=== PATIENT | female | born 1950 | race Caucasian/White ===

== ENCOUNTER 2021-09-07 17:53 | Inpatient (IN) ==
[2021-09-09] MEDS ORDERED: Fluticasone Propionate Nasal 50 MCG/SPRAY BOTTLE NS PRN (08:45)
[2021-09-09] MEDS ORDERED: Magnesium Oxide 400 MG TABLET PO PRN (08:45)
[2021-09-09] MEDS ORDERED: Nystatin POWDER 30 GM BOTTLE TP PRN (08:45)
[2021-09-09] MEDS ORDERED: Nystatin SUSP 5 ML UD.LIQ PO SCH (09:00)
[2021-09-09 16:28] LABS: Basophils % 0.1 %; Eosinophils % 0.3 %; Hematocrit 32.9 % (35.3-44.9); Hemoglobin 9.9 g/dL (11.5-15.4); Immature Granulocytes % 0.7 % (0-4); Lymphocytes # 0.6 K/mcL (0.6-4.6); Lymphocytes % 4.4 %; Mean Corpuscular HGB Conc 30.1 g/dL (31.6-35.5); Mean Corpuscular Hemoglobin 27.7 pg (28.0-33.3); Mean Corpuscular Volume 92.2 fL (83.0-100.0); Mean Platelet Volume 9.9 fL (9.4-12.4); Monocytes # 0.4 K/mcL (0.0-1.3); Monocytes % 2.7 %; Platelet Count 316 K/mcL (140-400); Red Blood Count 3.57 M/mcL (3.82-4.97); Red Cell Distribution Width 14.5 % (11.5-14.5); Segmented Neutrophils % 91.8 %; White Blood Count 14.2 K/mcL (4.3-11.1)
[2021-09-09 16:49] LABS: BUN/Creatinine Ratio 25 (6-26); Blood Urea Nitrogen 24 mg/dL (8-23); Calcium 8.3 mg/dL (8.6-10.3); Chloride 83 mEq/L (98-107); Glucose 238 mg/dL (70-105); Osmolality,Calculated 292 (280-300); Potassium 3.4 mEq/L (3.5-5.1); Sodium 135 mEq/L (136-145); eGFR For African Americans > 60 (> 60); eGFR For Non-African Americans 58 (> 60)
[2021-09-09 17:05] LABS: Carbon Dioxide > 45 mEq/L (23-29)
[2021-09-09] MEDS: *HR* Rivaroxaban 10 MG TABLET PO SCH (17:26)
[2021-09-09] MEDS: Torsemide 20 MG TABLET PO SCH (17:26)
[2021-09-09] MEDS: Albuterol 2.5 MG/3 ML NEBULIZER IH SCH (21:29)
[2021-09-09] MEDS: Budesonide Neb 0.5 MG/2 ML IH SCH (21:29)
[2021-09-09] MEDS: Sucralfate 1 GM TABLET PO SCH (22:33)
[2021-09-10] MEDS: Sucralfate 1 GM TABLET PO SCH ×2 (08:16→21:27)
[2021-09-10] MEDS: predniSONE 20 MG TABLET PO SCH (08:16)
[2021-09-10] MEDS: Torsemide 20 MG TABLET PO SCH ×2 (08:17→16:58)
[2021-09-10] MEDS: Budesonide Neb 0.5 MG/2 ML IH SCH ×2 (11:08→21:37)
[2021-09-10] MEDS: Albuterol 2.5 MG/3 ML NEBULIZER IH SCH ×2 (11:08→21:37)
[2021-09-10] MEDS: (Revefenacin [Yupelri] 175 MCG/3 ML Vial.Neb) AER SCH (11:27)
[2021-09-10] MEDS: Acetaminophen 325 MG TABLET PO PRN (14:44)
[2021-09-10] MEDS: *HR* Rivaroxaban 10 MG TABLET PO SCH (16:58)
[2021-09-11 08:13] LABS: Basophils % 0.1 %; Eosinophils # 0.2 K/mcL (0.0-0.6); Eosinophils % 1.4 %; Hematocrit 33.2 % (35.3-44.9); Immature Granulocytes % 0.8 % (0-4); Lymphocytes % 29.9 %; Mean Corpuscular HGB Conc 30.1 g/dL (31.6-35.5); Mean Corpuscular Hemoglobin 27.5 pg (28.0-33.3); Mean Corpuscular Volume 91.2 fL (83.0-100.0); Mean Platelet Volume 10.1 fL (9.4-12.4); Monocytes # 0.8 K/mcL (0.0-1.3); Monocytes % 6.7 %; Platelet Count 319 K/mcL (140-400); Red Blood Count 3.64 M/mcL (3.82-4.97); Red Cell Distribution Width 14.6 % (11.5-14.5); Segmented Neutrophils % 61.1 %; White Blood Count 11.5 K/mcL (4.3-11.1)
[2021-09-11 08:14] LABS: Lymphocytes # 3.4 K/mcL (0.6-4.6)
[2021-09-11 09:08] LABS: BUN/Creatinine Ratio 26 (6-26); Blood Urea Nitrogen 23 mg/dL (8-23); Carbon Dioxide > 45 mEq/L (23-29); Chloride 86 mEq/L (98-107); Glucose 89 mg/dL (70-105); Osmolality,Calculated 291 (280-300); Potassium 2.8 mEq/L (3.5-5.1); Sodium 139 mEq/L (136-145); eGFR For African Americans > 60 (> 60); eGFR For Non-African Americans > 60 (> 60)
[2021-09-11] MEDS: Torsemide 20 MG TABLET PO SCH ×2 (09:30→17:12)
[2021-09-11] MEDS: predniSONE 20 MG TABLET PO SCH (09:30)
[2021-09-11] MEDS ORDERED: Potassium Chloride Elixir 20 MEQ/15 ML UDC PO ONE ×3 (09:30→17:00)
[2021-09-11] MEDS: Sucralfate 1 GM TABLET PO SCH ×2 (09:30→21:10)
[2021-09-11] MEDS: Nicotine 21 MG PATCH.TD24 TD SCH (09:31)
[2021-09-11] MEDS: Budesonide Neb 0.5 MG/2 ML IH SCH ×2 (11:12→21:45)
[2021-09-11] MEDS: Albuterol 2.5 MG/3 ML NEBULIZER IH SCH ×2 (11:12→21:41)
[2021-09-11] MEDS: (Revefenacin [Yupelri] 175 MCG/3 ML Vial.Neb) AER SCH (11:53)
[2021-09-11] MEDS: *HR* Rivaroxaban 10 MG TABLET PO SCH (17:12)
[2021-09-11 18:15] LABS: Calcium 8.6 mg/dL (8.6-10.3)
[2021-09-11] MEDS: Acetaminophen 325 MG TABLET PO PRN (21:10)
[2021-09-12] MEDS: ALPRAZolam 0.5 MG TABLET PO PRN (00:17)
[2021-09-12] MEDS: predniSONE 20 MG TABLET PO SCH (08:07)
[2021-09-12] MEDS: Nicotine 21 MG PATCH.TD24 TD SCH (08:07)
[2021-09-12] MEDS: Torsemide 20 MG TABLET PO SCH ×2 (08:07→16:14)
[2021-09-12] MEDS: Sucralfate 1 GM TABLET PO SCH ×2 (08:07→19:58)
[2021-09-12 08:24] LABS: BUN/Creatinine Ratio 25 (6-26); Blood Urea Nitrogen 25 mg/dL (8-23); Calcium 8.3 mg/dL (8.6-10.3); Carbon Dioxide 44 mEq/L (23-29); Chloride 88 mEq/L (98-107); Glucose 90 mg/dL (70-105); Osmolality,Calculated 288 (280-300); Potassium 3.6 mEq/L (3.5-5.1); Sodium 137 mEq/L (136-145); eGFR For African Americans > 60 (> 60); eGFR For Non-African Americans 55 (> 60)
[2021-09-12] MEDS: Azithromycin 250 MG TABLET PO SCH (09:20)
[2021-09-12] MEDS: Budesonide Neb 0.5 MG/2 ML IH SCH ×2 (10:42→22:45)
[2021-09-12] MEDS: Albuterol 2.5 MG/3 ML NEBULIZER IH SCH ×2 (10:42→22:45)
[2021-09-12] MEDS: (Revefenacin [Yupelri] 175 MCG/3 ML Vial.Neb) AER SCH (10:53)
[2021-09-12] MEDS: *HR* Rivaroxaban 10 MG TABLET PO SCH (16:15)
[2021-09-13] MEDS: Torsemide 20 MG TABLET PO SCH ×2 (10:01→16:12)
[2021-09-13] MEDS: Sucralfate 1 GM TABLET PO SCH ×2 (10:01→22:13)
[2021-09-13] MEDS: ALPRAZolam 0.5 MG TABLET PO PRN ×2 (10:01→22:13)
[2021-09-13] MEDS: Magnesium Oxide 400 MG TABLET PO SCH (10:02)
[2021-09-13] MEDS: Nicotine 21 MG PATCH.TD24 TD SCH (10:02)
[2021-09-13] MEDS: Albuterol 2.5 MG/3 ML NEBULIZER IH SCH ×2 (11:12→21:56)
[2021-09-13] MEDS: Budesonide Neb 0.5 MG/2 ML IH SCH ×2 (11:12→21:56)
[2021-09-13] MEDS: (Revefenacin [Yupelri] 175 MCG/3 ML Vial.Neb) AER SCH (12:48)
[2021-09-13] MEDS: *HR* Rivaroxaban 10 MG TABLET PO SCH (16:12)
[2021-09-14] MEDS: Sucralfate 1 GM TABLET PO SCH ×2 (07:45→19:45)
[2021-09-14] MEDS: Nicotine 21 MG PATCH.TD24 TD SCH (07:45)
[2021-09-14] MEDS: Magnesium Oxide 400 MG TABLET PO SCH (07:45)
[2021-09-14] MEDS: Torsemide 20 MG TABLET PO SCH ×2 (07:52→17:59)
[2021-09-14] MEDS: Azithromycin 250 MG TABLET PO SCH (07:57)
[2021-09-14] MEDS: (Revefenacin [Yupelri] 175 MCG/3 ML Vial.Neb) AER SCH (11:02)
[2021-09-14] MEDS: Acetaminophen 325 MG TABLET PO PRN (11:07)
[2021-09-14] MEDS: Budesonide Neb 0.5 MG/2 ML IH SCH ×2 (11:08→20:51)
[2021-09-14] MEDS: Albuterol 2.5 MG/3 ML NEBULIZER IH SCH ×2 (11:08→20:51)
[2021-09-14] MEDS: *HR* Rivaroxaban 10 MG TABLET PO SCH (17:59)
[2021-09-15] MEDS: ALPRAZolam 0.5 MG TABLET PO PRN ×2 (00:28→22:01)
[2021-09-15 06:54] VITALS: TEMP 98.3
[2021-09-15] MEDS: (Revefenacin [Yupelri] 175 MCG/3 ML Vial.Neb) AER SCH (09:39)
[2021-09-15] MEDS: Albuterol 2.5 MG/3 ML NEBULIZER IH SCH ×2 (09:39→21:55)
[2021-09-15] MEDS: Budesonide Neb 0.5 MG/2 ML IH SCH ×2 (09:40→21:55)
[2021-09-15] MEDS: Torsemide 20 MG TABLET PO SCH ×2 (09:57→15:33)
[2021-09-15] MEDS: Magnesium Oxide 400 MG TABLET PO SCH (09:57)
[2021-09-15] MEDS: Sucralfate 1 GM TABLET PO SCH ×2 (09:58→22:01)
[2021-09-15] MEDS: Acetaminophen 325 MG TABLET PO PRN ×2 (09:59→18:37)
[2021-09-15] MEDS: Nicotine 21 MG PATCH.TD24 TD SCH (10:00)
[2021-09-15 10:38] LABS: Basophils % 0.2 %; Eosinophils # 0.2 K/mcL (0.0-0.6); Eosinophils % 1.2 %; Hematocrit 31.7 % (35.3-44.9); Hemoglobin 9.3 g/dL (11.5-15.4); Immature Granulocytes % 0.4 % (0-4); Lymphocytes % 10.8 %; Mean Corpuscular HGB Conc 29.3 g/dL (31.6-35.5); Mean Corpuscular Hemoglobin 27.5 pg (28.0-33.3); Mean Corpuscular Volume 93.8 fL (83.0-100.0); Mean Platelet Volume 9.4 fL (9.4-12.4); Monocytes % 5.4 %; Platelet Count 382 K/mcL (140-400); Red Blood Count 3.38 M/mcL (3.82-4.97); Red Cell Distribution Width 14.6 % (11.5-14.5); White Blood Count 18.5 K/mcL (4.3-11.1)
[2021-09-15 10:40] LABS: Neutrophils # 15.2 K/mcL (1.6-8.9)
[2021-09-15 10:53] LABS: BUN/Creatinine Ratio 22 (6-26); Blood Urea Nitrogen 20 mg/dL (8-23); Calcium 8.3 mg/dL (8.6-10.3); Chloride 87 mEq/L (98-107); Glucose 125 mg/dL (70-105); Magnesium 1.7 mg/dL (1.6-2.6); Osmolality,Calculated 286 (280-300); Potassium 3.1 mEq/L (3.5-5.1); Sodium 136 mEq/L (136-145); eGFR For African Americans > 60 (> 60); eGFR For Non-African Americans > 60 (> 60)
[2021-09-15 10:55] LABS: Carbon Dioxide > 45 mEq/L (23-29)
[2021-09-15 10:58] LABS: Troponin I 0.04 ng/mL (< 0.04)
[2021-09-15] MEDS: Metoprolol XL (24 HR) Succ 25 MG TAB.ER.24H PO SCH (11:14)
[2021-09-15] MEDS: levoFLOXacin 750 MG TABLET PO SCH (15:33)
[2021-09-15] MEDS: *HR* Rivaroxaban 10 MG TABLET PO SCH (18:30)
[2021-09-16] MEDS: Acetaminophen 325 MG TABLET PO PRN ×2 (02:19→08:12)
[2021-09-16 07:19] VITALS: BP 97/63; PULSE 103; RESP 18
[2021-09-16] MEDS: Sucralfate 1 GM TABLET PO SCH (07:56)
[2021-09-16] MEDS: Magnesium Oxide 400 MG TABLET PO SCH (08:00)
[2021-09-16] MEDS: levoFLOXacin 750 MG TABLET PO SCH (08:01)
[2021-09-16] MEDS: Nicotine 21 MG PATCH.TD24 TD SCH (08:02)
[2021-09-16] MEDS: Torsemide 20 MG TABLET PO SCH (08:03)
[2021-09-16] MEDS: Metoprolol XL (24 HR) Succ 25 MG TAB.ER.24H PO SCH (08:03)
[2021-09-16] MEDS: Azithromycin 250 MG TABLET PO SCH (08:12)
[2021-09-16] MEDS: Budesonide Neb 0.5 MG/2 ML IH SCH (09:53)
[2021-09-16] MEDS: Albuterol 2.5 MG/3 ML NEBULIZER IH SCH (09:53)
[2021-09-16] MEDS: (Revefenacin [Yupelri] 175 MCG/3 ML Vial.Neb) AER SCH (09:57)
[2021-09-16 10:18] VITALS: O2SAT 97
[2021-09-16 10:43] LABS: Basophils % 0.1 %; Eosinophils # 0.1 K/mcL (0.0-0.6); Eosinophils % 0.8 %; Hematocrit 29.8 % (35.3-44.9); Hemoglobin 8.8 g/dL (11.5-15.4); Immature Granulocytes % 0.4 % (0-4); Lymphocytes # 1.2 K/mcL (0.6-4.6); Mean Corpuscular HGB Conc 29.5 g/dL (31.6-35.5); Mean Corpuscular Hemoglobin 27.2 pg (28.0-33.3); Mean Corpuscular Volume 92.3 fL (83.0-100.0); Mean Platelet Volume 9.5 fL (9.4-12.4); Monocytes # 0.8 K/mcL (0.0-1.3); Monocytes % 5.1 %; Neutrophils # 12.8 K/mcL (1.6-8.9); Platelet Count 333 K/mcL (140-400); Red Blood Count 3.23 M/mcL (3.82-4.97); Red Cell Distribution Width 14.4 % (11.5-14.5); Segmented Neutrophils % 85.6 %
[2021-09-16 11:05] LABS: BUN/Creatinine Ratio 21 (6-26); Blood Urea Nitrogen 18 mg/dL (8-23); Carbon Dioxide 43 mEq/L (23-29); Chloride 89 mEq/L (98-107); Glucose 220 mg/dL (70-105); Osmolality,Calculated 287 (280-300); Sodium 134 mEq/L (136-145); eGFR For African Americans > 60 (> 60); eGFR For Non-African Americans > 60 (> 60)
== END 2021-09-16 14:00 | disposition home health service (06) | DRG 193 ==
LOC: INPPIK 09-09 13:44
PROVIDERS: ADMIT Internal Medicine; ATTEND Internal Medicine